=== PATIENT | male | born 1960 | race Asian ===

== ENCOUNTER 2017-03-27 10:32 | Outpatient (CLI) | payer OTHER ==
--- NOTE | 2017-03-27 15:19 | XRAY Report ---
TWO-VIEW RIGHT CALCANEUS: 03/27/2017 CLINICAL INDICATION: Right heel pain. FINDINGS: Frontal and lateral views of the right calcaneus demonstrate no evidence of fracture. Mil d degenerative changes are present, with a small plantar calcaneal spur. No radiopaque foreign body is seen in the soft tissues. IMPRESSION: MILD DEGENERATIVE CHANGES. NO EVIDENCE OF CALCANEAL FRACTURE. JOB #: [id number] EXT JOB #:[id number]
== END 2017-03-27 10:33 | disposition home or self-care (01) ==
LOC: DI.N 10:32
PROVIDERS: ATTEND Physician Assistant
DX: M19.071 Primary osteoarthritis, right ankle and foot (principal)

== ENCOUNTER 2018-11-25 10:16 | Outpatient (CLI) | payer BC ==
--- NOTE | 2018-11-25 12:46 | XRAY Report ---
Reason: SCIATICA,LEFT SIDE Procedure Date: 11/25/2018 Accession Number: [id number] / [id number] Procedure: XRN - Lumbar Spine Complete CPT Code: FULL RESULT: EXAM: LUMBOSACRAL SPINE RADIOGRAPHY EXAM DATE: 11/25/2018 10:43 AM. CLINICAL HISTORY: Sciatica, left side. COMPARISONS: None. TECHNIQUE: 5 views. FINDINGS: Alignment: Mild dextroconvex lumbar scoliosis centered about L2. No listhesis. Bones: Five [id number] lumbar vertebral bodies are present. No fractures or bone lesions. Disks: Normal. Disk heights are maintained. Facets: Mild facet arthropathy predominantly at L5. Sacroiliac Joints: Unremarkable. Soft Tissues: Normal. The visualized bowel gas pattern is normal. IMPRESSION: Mild degenerative changes. RADIA
== END 2018-11-25 10:17 | disposition home or self-care (01) ==
LOC: DI.N 10:16
PROVIDERS: ATTEND Family Medicine
DX: M47.9 Spondylosis, unspecified (principal)
CPT/HCPCS: 72110

== ENCOUNTER 2019-09-03 02:07 | Outpatient (CLI) | payer BC | END 2019-09-03 02:08 | disposition critical access hospital (66) | LOC: EMS 02:07 | PROVIDERS: ATTEND Surgery | DX: R11.2 Nausea with vomiting, unspecified (principal); R10.9 Unspecified abdominal pain | CPT/HCPCS: A0425; A0427 ==

== ENCOUNTER 2019-09-03 02:24 | Emergency (ER) | payer BC ==
[2019-09-03] MEDS ORDERED: SODIUM CHLORIDE 0.9% 1,000 ML IV ONE (02:41)
[2019-09-03] MEDS ORDERED: LIDOCAINE VISCOUS 2% 15 ML UDC MM STA (02:42)
[2019-09-03] MEDS ORDERED: MAG HYDROX/AL HYDROX/SIMETH 30 ML UDC PO STA (02:42)
--- NOTE | 2019-09-03 02:42 | ED Physician Documentation ---
PD HPI NVD - Stated complaint Stated Complaint: ABD PAIN, N/V - Chief complaint Chief Complaint: Abd Pain - History obtained from History obtained from: Patient, EMS - History of Present Illness Timing - onset: How many hours ago (1-2) Timing - duration: Hours (1-2) Timing - details: Abrupt onset, Still present Associated symptoms: Abdominal pain (upper abd cramping pain with the vomiting). No: Fever Contributing factors: No: Sick contact, Bad food (ate chines food just prior to onset of symptoms but /family did as well and they are not ill.) Improved by: No: Vomiting Worsened by: Eating Similar symptoms before: Has not had sx before Recently seen: Not recently seen Review of Systems Constitutional: denies: Fever, Chills Nose: reports: Congestion (for couple of days.). denies: Rhinorrhea / runny nose Throat: denies: Sore throat Respiratory: reports: Cough (mild for 1-2 days) GI: reports: Abdominal Pain, Nausea, Vomiting. denies: Diarrhea : denies: Dysuria, Frequency Neurologic: reports: Generalized weakness. denies: Near syncope PD PAST MEDICAL HISTORY - Past Medical History Past Medical History: No Cardiovascular: High cholesterol Respiratory: None Neuro: None GI: Diverticulitis - Past Surgical History Past Surgical History: No - Present Medications Home Medications: Ambulatory Orders Medication Instructions Recorded Confirmed Diphenoxylate/Atropine [Lomotil] 1 each PO QID PRN #12 tablet 09/03/19 Ondansetron Odt [Zofran] 4 mg TL Q6H PRN #10 tablet 09/03/19 - Allergies Allergies/Adverse Reactions: Allergies Allergy/AdvReac Type Severity Reaction Status Date / Time No Known Drug Allergies Allergy Verified 09/03/19 02:34 - Social History Does the pt smoke?: No Smoking Status: Never smoker Does the pt drink ETOH?: Yes Does the pt have substance abuse?: Yes Substance Use and Type: Marijuana - Immunizations Immunizations are current?: Yes - POLST Patient has POLST: No PD ED PE NORMAL - Vitals Vital signs reviewed: Yes - General General: Alert and oriented X 3, Well developed/nourished - HEENT HEENT: Pharynx benign - Neck Neck: Supple, no meningeal sign, No adenopathy - Cardiac Cardiac: RRR, No murmur - Respiratory Respiratory: Clear bilaterally - Abdomen Abdomen: Normal bowel sounds, Soft, Non distended, No organomegaly, Other (tender upper abd without guarding nor percussion tenderness. ) - Rectal Rectal: Deferred - Back Back: No CVA TTP - Derm Derm: Normal color, Warm and dry Results - Vitals Vitals: Vital Signs - 24 hr 09/03/19 09/03/19 09/03/19 02:26 02:35 04:34 Temperature 36.6 C 36.6 C Heart Rate 68 63 59 L Respiratory 16 15 Rate Blood Pressure 104/74 112/70 110/60 O2 Saturation 100 100 99 09/03/19 05:15 Temperature 36.3 C L Heart Rate 58 L Respiratory 16 Rate Blood Pressure 106/58 L O2 Saturation 99 Oxygen O2 Source Room air - Labs Labs: Laboratory Tests 09/03/19 09/03/19 09/03/19 02:42 02:42 03:25 WBC 14.7 H RBC 4.83 Hgb 14.6 Hct 43.2 MCV 89.4 MCH 30.2 MCHC 33.8 RDW 12.5 Plt Count 283 MPV 9.3 Neut # (Auto) 13.1 H Lymph # (Auto) 0.6 L [place] # (Auto) 0.7 Eos # (Auto) 0.1 Baso # (Auto) 0.0 Absolute Nucleated RBC 0.00 Nucleated RBC % 0.0 Sodium 140 Potassium 3.1 L Chloride 109 Carbon Dioxide 22 Anion Gap 9.0 BUN 27 H Creatinine 1.0 Estimated GFR (MDRD) 76 L Glucose 137 H Calcium 8.9 Total Bilirubin 1.3 H AST 38 ALT 42 Alkaline Phosphatase 50 Total Protein 6.8 Albumin 3.9 Globulin 2.9 Albumin/Globulin Ratio 1.3 Lipase 42 Urine Color YELLOW Urine Clarity CLEAR Urine pH 6.0 Ur Specific [place] 1.025 Urine Protein NEGATIVE Urine Glucose (UA) NEGATIVE Urine Ketones TRACE Urine Occult Blood NEGATIVE Urine Nitrite NEGATIVE Urine Bilirubin NEGATIVE Urine Urobilinogen 0.2 (NORMAL) Ur Leukocyte Esterase NEGATIVE Ur Microscopic Review NOT INDICATED Urine Culture Comments NOT INDICATED - Rads (name of study) upper abd U/S Radiology: Prelim report reviewed (no acute process), See rad report PD MEDICAL DECISION MAKING - ED course Complexity details: reviewed results (No acute process on labs or ultrasound. He did develop some diarrhea here in the ER as well and again family members are feeling okay so I am presuming a viral illness.), re-evaluated patient (feeling such better with some fluids and meds. ), considered differential (Consider food poisoning versus food intolerance or viral gastroenteritis. Also consider biliary colic or pancreatitis.), d/w patient Departure - Departure Disposition: 01 Home, Self Care Clinical Impression: Nausea vomiting and diarrhea Condition: Stable Record reviewed to determine appropriate education?: Yes Instructions: ED Food Poison Or Gastroenteritis Prescriptions: Diphenoxylate/Atropine [Lomotil] 1 each PO QID PRN #12 tablet PRN Reason: Diarrhea Ondansetron Odt [Zofran] 4 mg TL Q6H PRN #10 tablet PRN Reason: Nausea / Vomiting Comments: Presume this is likely a viral "stomach flu" and will last 1-2 days. Use Zofran if needed for nausea/vomiting, Diphenoxylate if needed for diarrhea. Tylenol as needed for pains. Frequent fluids. Hardy food such as rice/pastas/breads initially and with simple sugars such as juice/gatorades. Advance as tolerated. Recheck if not improved over the next couple days back to normal. Discharge Date/Time: 09/03/19 05:15
[2019-09-03 02:54] LABS: BASOPHILS % (AUTO) 0.3 %; EOSINOPHILS # (AUTO) 0.1 10^3/uL (0.0-0.7); EOSINOPHILS % (AUTO) 0.9 %; HGB - HEMOGLOBIN 14.6 g/dL (14.0-18.0); LYMPHOCYTES # (AUTO) 0.6 10^3/uL (1.5-3.5); LYMPHOCYTES % (AUTO) 4.3 %; MEAN CORPUSCULAR HEMOGLOBIN 30.2 pg (27.0-31.0); MEAN CORPUSCULAR HGB CONC 33.8 g/dL (32.0-36.0); MEAN CORPUSCULAR VOLUME 89.4 fL (80.0-94.0); MEAN PLATELET VOLUME 9.3 fL (7.4-11.4); MONOCYTES # (AUTO) 0.7 10^3/uL (0.0-1.0); MONOCYTES % (AUTO) 4.6 %; NEUTROPHILS # (AUTO) 13.1 10^3/uL (1.5-6.6); NEUTROPHILS % (AUTO) 89.2 %; PLT - PLATELET COUNT 283 10^3/uL (130-450); RED BLOOD COUNT 4.83 10^6/uL (4.70-6.10); RED CELL DISTRIBUTION WIDTH 12.5 % (12.0-15.0); WHITE BLOOD COUNT 14.7 x10^3/uL (4.8-10.8)
[2019-09-03 03:06] LABS: ALBUMIN 3.9 g/dL (3.2-5.5); ALBUMIN/GLOBULIN RATIO 1.3 (1.0-2.2); BILIRUBIN,TOTAL 1.3 mg/dL (0.2-1.0); CALCIUM 8.9 mg/dL (8.5-10.3); TOTAL PROTEIN 6.8 g/dL (6.7-8.2)
[2019-09-03 04:07] LABS: BILIRUBIN,URINE NEGATIVE (NEGATIVE); CLARITY,URINE CLEAR (CLEAR); GLUCOSE, URINE (UA) NEGATIVE (NEGATIVE); KETONES,URINE (UA) TRACE mg/dL (NEGATIVE); LEUKOCYTE ESTERASE, URINE NEGATIVE (NEGATIVE); NITRITE,URINE NEGATIVE (NEGATIVE); OCCULT BLOOD,URINE NEGATIVE (NEGATIVE); PROTEIN,URINE NEGATIVE (NEGATIVE); UROBILINOGEN,URINE 0.2 (NORMAL) E.U./dL (NORMAL)
[2019-09-03] MEDS ORDERED: ONDANSETRON ODT 4 MG Prepack 2 TL PRN (04:10)
[2019-09-03] MEDS ORDERED: DIPHENOX/ATROPINE 2.5/0.025 MG TABLET PO STA (04:10)
--- NOTE | 2019-09-03 04:10 | Ultrasound Report ---
Reason: upper abd pain and vomiting 2 hours Procedure Date: 09/03/2019 Accession Number: [id number] / [id number] Procedure: US - Abdomen Limited CPT Code: Final Report FULL RESULT: EXAM: ABDOMEN ULTRASOUND LIMITED, RUQ EXAM DATE: 09/03/2019 03:35 AM. CLINICAL HISTORY: Upper abdominal pain and vomiting for 2 hours. Elevated bilirubin. COMPARISON: None. TECHNIQUE: Real-time scanning was performed with static images obtained. FINDINGS: Liver: Normal echogenicity. No suspicious focal lesion. Liver measures 17.3 cm in length. Portal Vein: Patent with hepatopetal flow. Gallbladder: No stones, wall thickening, or sonographic Page's sign. Biliary System: CBD measures 2.5-3.8 mm. No intrahepatic or extrahepatic ductal dilatation. Pancreas: Obscured by overlying structures. Right Kidney: Visualized portions of the right kidney are without significant abnormality. Right kidney measures 10.3 cm in length. Other: None. IMPRESSION: No cholelithiasis, cholecystitis, or biliary dilation. Nonspecific upper quadrant tenderness. RADIA
[2019-09-03 05:17] VITALS: BP 106/58
== END 2019-09-03 05:15 | disposition home or self-care (01) ==
LOC: EDUNIT# → ED 02:24
DX: R11.2 Nausea with vomiting, unspecified (principal); R19.7 Diarrhea, unspecified
CPT/HCPCS: 36415; 76705; 80053; 81003; 83690; 85025; 96360; 96361; 99284; A9270; 81001; 87086

== ENCOUNTER 2022-01-13 08:14 | Outpatient (CLI) | payer OTHER | END 2022-01-13 08:15 | disposition critical access hospital (66) | LOC: EMS 08:14 | DX: R07.89 Other chest pain (principal) | CPT/HCPCS: A0425; A0427 ==

== ENCOUNTER 2022-01-13 08:35 | Emergency (ER) | payer BC, OTHER ==
--- NOTE | 2022-01-13 08:54 | ED Physician Documentation ---
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 But also some discomfort eating with improves with belching. Onset of chest pain during sleep this morning about 3 am, lasting for 20-30 minutes.) Timing - duration: Minutes Timing - details: Intermittant Quality: Tightness, Aching Location: Substernal, Left chest Radiation: No: Neck, Back Improved by: Rest Worsened by: No: Inspiration, Movement Associated symptoms: Shortness of air, Other (belching) Similar symptoms before: Has not had sx before Recently seen: Clinic (went to [facility] this morning and referred to ER for expeditious testing.) Review of Systems Constitutional: denies: Fever, Chills Nose: denies: Rhinorrhea / runny nose, Congestion Throat: denies: Sore throat Respiratory: denies: Cough GI: denies: Abdominal Pain, Vomiting, Diarrhea, Bloody / black stool Skin: denies: Rash, Lesions Neurologic: reports: Generalized weakness. denies: Near syncope PD PAST MEDICAL HISTORY - Past Medical History Cardiovascular: High cholesterol Respiratory: None Neuro: None GI: Diverticulitis - Past Surgical History Past Surgical History: No - Present Medications Home Medications: Ambulatory Orders Medication Instructions Recorded Confirmed Diphenoxylate/Atropine [Lomotil] 1 each PO QID PRN #12 tablet 09/03/19 Ondansetron Odt [Zofran] 4 mg TL Q6H PRN #10 tablet 09/03/19 Famotidine [Pepcid] 20 mg PO DAILY #20 tablet 01/13/22 - Allergies Allergies/Adverse Reactions: Allergies Allergy/AdvReac Type Severity Reaction Status Date / Time No Known Drug Allergies Allergy Verified 09/03/19 02:34 - Social History Does the pt smoke?: No Smoking Status: Never smoker Does the pt drink ETOH?: Yes Does the pt have substance abuse?: Yes - Immunizations Immunizations are current?: Yes - POLST Patient has POLST: No PD ED PE NORMAL - Vitals Vital signs reviewed: Yes - General General: Alert and oriented X 3, No acute distress, Well developed/nourished - HEENT HEENT: Pharynx benign - Neck Neck: Supple, no meningeal sign, No adenopathy - Cardiac Cardiac: RRR, No murmur - Respiratory Respiratory: Clear bilaterally, Other (no chestwall tenderness. ) - Abdomen Abdomen: Normal bowel sounds, Soft, Non tender, Non distended - Derm Derm: Normal color, Warm and dry - Extremities Extremities: Normal ROM s pain, No edema, No calf tenderness / cord - Neuro Neuro: Alert and oriented X 3, No motor deficit, Normal speech Eye Opening: Spontaneous Motor: Obeys Commands Verbal: Oriented GCS Score: 15 Results - Vitals Vitals: Vital Signs - 24 hr 01/13/22 01/13/22 01/13/22 08:39 08:59 10:15 Temperature 36.7 C Heart Rate 54 L 63 66 Respiratory 16 19 21 Rate Blood Pressure 110/85 H 135/85 H 142/84 H O2 Saturation 100 100 100 01/13/22 12:37 Temperature Heart Rate 73 Respiratory 20 Rate Blood Pressure 154/87 H O2 Saturation 100 Oxygen O2 Source Room air - EKG (time done) 08:42 Rate: Rate (enter#) (52) Rhythm: NSR [place]: Normal Intervals: Normal [place] QRS: Normal Ischemia: Normal ST segments. No: ST elevation c/w ischemia, ST depression Computer interpretation: Agree with computer - Labs Labs: Laboratory Tests 01/13/22 01/13/22 01/13/22 09:00 09:00 09:00 WBC 4.7 L RBC 5.22 Hgb 15.6 Hct 46.4 MCV 88.9 MCH 29.9 MCHC 33.6 RDW 12.8 Plt Count 266 MPV 9.0 Neut # (Auto) 3.0 Lymph # (Auto) 1.0 L [place] # (Auto) 0.4 Eos # (Auto) 0.3 Baso # (Auto) 0.1 Absolute Nucleated RBC 0.00 Nucleated RBC % 0.0 Sodium 139 Potassium 3.9 Chloride 105 Carbon Dioxide 23 Anion Gap 11.0 BUN 21 H Creatinine 0.8 Estimated GFR (MDRD) 98 Glucose 115 H Calcium 8.9 Total Bilirubin 0.7 AST 31 ALT 32 Alkaline Phosphatase 50 Troponin I High Sens 3.9 B-Natriuretic Peptide Total Protein 6.9 Albumin 4.0 Globulin 2.9 Albumin/Globulin Ratio 1.4 Lipase 39 01/13/22 09:00 WBC RBC Hgb Hct MCV MCH MCHC RDW Plt Count MPV Neut # (Auto) Lymph # (Auto) [place] # (Auto) Eos # (Auto) Baso # (Auto) Absolute Nucleated RBC Nucleated RBC % Sodium Potassium Chloride Carbon Dioxide Anion Gap BUN Creatinine Estimated GFR (MDRD) Glucose Calcium Total Bilirubin AST ALT Alkaline Phosphatase Troponin I High Sens B-Natriuretic Peptide 19 Total Protein Albumin Globulin Albumin/Globulin Ratio Lipase - Rads (name of study) chest xray Radiology: Prelim report reviewed (no acute process), See rad report PD MEDICAL DECISION MAKING - ED course Complexity details: reviewed results, re-evaluated patient, considered differe ntial (consider ACS/angina/NE versus msculoskeletal vs. gastritis/GERD amongst other causes. ), d/w PMD (I talked with PA at Dr. Adhikari's office who will arrange stress test for patient presume this outpt here at . ), d/w clinical application consultant (Hospitalist, who said we did not have ability for stress testing today and patient not having clear criteria for hospital stay/OBS into tomorrow. Can have PMD order stress test outpt for . ) Departure - Departure Disposition: Home, Self Care Clinical Impression: Chest pain Qualifiers: Chest pain type: precordial pain Qualified Code(s): R07.2 - Precordial pain Condition: Stable Record reviewed to determine appropriate education?: Yes Follow-Up: Jer Adhikari DO [Primary Care Provider] - Prescriptions: Famotidine [Pepcid] 20 mg PO DAILY #20 tablet Comments: I would suggest rest and take it easy without work today and tomorrow anyway. As of this moment, Dr. Adhikari has not called back from the office. When he does I will tell him our thought process of needing a stress test and concern for side effect of the bupropion with possible reflux. I would suggest using acid reducing medicine of famotidine twice daily for the next several days and then once daily after that for couple more weeks. For now I think you can continue with the bupropion at the lower dose for now. Add antacid such as Maalox or Mylanta if needed for discomfort. I will talk with Dr. Adhikari about setting up the stress test to fully exclude a heart cause of your discomfort. I assume he will's office will contact you later today after I talked to them. Return to the ER if repeated and persistent symptoms. Forms: Activity restrictions Discharge Date/Time: 01/13/22 12:41
[2022-01-13 09:06] LABS: BASOPHILS # (AUTO) 0.1 10^3/uL (0.0-0.1); BASOPHILS % (AUTO) 1.3 %; EOSINOPHILS # (AUTO) 0.3 10^3/uL (0.0-0.7); EOSINOPHILS % (AUTO) 5.8 %; HCT - HEMATOCRIT 46.4 % (42.0-52.0); HGB - HEMOGLOBIN 15.6 g/dL (14.0-18.0); LYMPHOCYTES % (AUTO) 20.3 %; MEAN CORPUSCULAR HEMOGLOBIN 29.9 pg (27.0-31.0); MEAN CORPUSCULAR HGB CONC 33.6 g/dL (32.0-36.0); MEAN CORPUSCULAR VOLUME 88.9 fL (80.0-94.0); MONOCYTES # (AUTO) 0.4 10^3/uL (0.0-1.0); MONOCYTES % (AUTO) 7.5 %; NEUTROPHILS % (AUTO) 64.7 %; PLT - PLATELET COUNT 266 10^3/uL (130-450); RED BLOOD COUNT 5.22 10^6/uL (4.70-6.10); RED CELL DISTRIBUTION WIDTH 12.8 % (12.0-15.0); WHITE BLOOD COUNT 4.7 x10^3/uL (4.8-10.8)
[2022-01-13 09:20] LABS: ALBUMIN/GLOBULIN RATIO 1.4 (1.0-2.2); BILIRUBIN,TOTAL 0.7 mg/dL (0.2-1.0); CALCIUM 8.9 mg/dL (8.5-10.3); CREATININE 0.8 mg/dL (0.6-1.2); POTASSIUM 3.9 mmol/L (3.5-5.0); TOTAL PROTEIN 6.9 g/dL (6.7-8.2)
--- NOTE | 2022-01-13 09:29 | XRAY Report ---
PROCEDURE: Chest 1 View X-Ray INDICATIONS: Chest pain TECHNIQUE: One view of the chest was acquired. COMPARISON: None FINDINGS: Surgical changes and devices: None. Lungs and pleura: No pleural effusions or pneumothorax. Lungs are clear. Mediastinum: Mediastinal contours appear normal. Heart size is normal. Bones and chest wall: No suspicious bony lesions. Overlying soft tissues appear unremarkable. IMPRESSION: No acute cardiopulmonary process demonstrated radiographically. Reviewed by: Isma Du MD on 01/13/2022 9:28 AM PDT Approved by: Isma Du MD on 01/13/2022 9:28 AM PDT Station ID: [id number]
--- OUTSIDE RECORDS SUMMARY | 2022-01-13 09:41 | EXTERNAL MEDICAL SUMMARY RPT | Continuity of Care Document ---
:1960 Author Organization [facility] Address [address] [place] [address] Phone Care Team Providers Name Role Phone MD Unavailable Unavailable Allergies No information. Encounters No information. Medications date description facility 20220113 bupropion hcl All Problems date description facility 20220113 Unspecified chest pain All 20220113 Details of drug misuse behavior All 20220113 Chest pain, unspecified All 20220113 Chest pain All 20220113 Alcohol use All 20220113 Alcohol intake All Procedures date description facility 20220113 EKG Office Complete All Results No information. Vital Signs date measurement value source 20220113 weight_standard 156.2 lb 20220113 weight_metric 70.85 kg 20220113 temperature_standard 97.4 F 20220113 temperature_metric 36.33 C 20220113 respiration_rate 18 /min 20220113 heart_rate 64 /min 20220113 BP_systolic 176 mm[Hg] 20220113 BP_diastolic 88 mm[Hg]
[2022-01-13] MEDS ORDERED: MAG HYDROX/AL HYDROX/SIMETH 30 ML UDC PO STA (12:02)
[2022-01-13] MEDS ORDERED: FAMOTIDINE 20 MG TABLET PO STA (12:03)
[2022-01-13 12:37] VITALS: BP 154/87
== END 2022-01-13 12:41 | disposition home or self-care (01) ==
LOC: EDUNIT# → ED 08:35
DX: R07.2 Precordial pain (principal)
CPT/HCPCS: 36415; 71045; 80053; 83690; 83880; 84484; 85025; 93005; 99284; A9270

== ENCOUNTER 2022-01-14 06:08 | Emergency (ER) | payer OTHER ==
--- OUTSIDE RECORDS SUMMARY | 2022-01-14 06:23 | EXTERNAL MEDICAL SUMMARY RPT | Continuity of Care Document ---
:1960 Author Organization [facility] Address [address] [place] [address] Phone Care Team Providers Name Role Phone [...]
--- NOTE | 2022-01-14 06:56 | ED Physician Documentation ---
PD HPI CHEST PAIN - Stated complaint Stated Complaint: Chest pressure,soa,cough - Chief complaint Chief Complaint: Cardiac - History obtained from History obtained from: Patient - History of Present Illness Timing - onset: How many hours ago (2) Timing - onset during: Sleep (awoke from sleep with chest pain again, similar to prior night. This episode more epigastric.) Timing - duration: Hours (2) Timing - details: Abrupt onset, Still present Quality: Aching, Pain Location: Substernal, Epigastric Radiation: No: Jaw, Neck, Back Improved by: Other (sitting up) Associated symptoms: Nausea, Feeling faint / dizzy. No: Shortness of air, Diaphoresis, Vomiting, Palpitations Similar symptoms before: No diagnosis (possible gastritis, but concern for ACS. patient says has appt with PMD Thursday.) Recently seen: Emergency Dept (yesterday) Review of Systems Constitutional: denies: Fever, Chills Nose: denies: Rhinorrhea / runny nose, Congestion Throat: denies: Sore throat Respiratory: denies: Cough GI: reports: Nausea. denies: Vomiting, Diarrhea, Bloody / black stool Skin: denies: Rash, Lesions Musculoskeletal: denies: Neck pain, Back pain, Extremity swelling Neurologic: denies: Near syncope, Altered mental status, Headache PD PAST MEDICAL HISTORY - Past Medical History Past Medical History: Yes Cardiovascular: High cholesterol Respiratory: None Neuro: None GI: Diverticulitis Psych: Depression, Anxiety - Past Surgical History Past Surgical History: No - Present Medications Home Medications: Ambulatory Orders Medication Instructions Recorded Confirmed Diphenoxylate/Atropine [Lomotil] 1 each PO QID PRN #12 tablet 09/03/19 01/14/22 Ondansetron Odt [Zofran] 4 mg TL Q6H PRN #10 tablet 09/03/19 01/14/22 Famotidine [Pepcid] 20 mg PO DAILY #20 tablet 01/13/22 01/14/22 Lidocaine Viscous 2% [Xylocaine 5 ml PO Q4H PRN #100 ml 01/14/22 Viscous 2%] Pantoprazole [Protonix] 40 mg PO DAILY 30 Days #30 tablet 01/14/22 Sucralfate [Carafate] 1 gm PO ACHS #20 tablet 01/14/22 buPROPion HCL [Bupropion HCl] 75 mg PO DAILY 01/14/22 01/14/22 - Allergies Allergies/Adverse Reactions: Allergies Allergy/AdvReac Type Severity Reaction Status Date / Time No Known Drug Allergies Allergy Verified 01/14/22 06:28 - Social History Does the pt smoke?: No Smoking Status: Never smoker Does the pt drink ETOH?: Yes Does the pt have substance abuse?: Yes - Immunizations Immunizations are current?: Yes - POLST Patient has POLST: No PD ED PE NORMAL - Vitals Vital signs reviewed: Yes - General General: Alert and oriented X 3, No acute distress, Well developed/nourished - Neck Neck: Supple, no meningeal sign, No adenopathy, No JVD - Cardiac Cardiac: RRR, No murmur - Respiratory Respiratory: No respiratory distress, Clear bilaterally - Abdomen Abdomen: Normal bowel sounds, Soft, Non distended, No organomegaly, Other (tender epigastric and luq areas) - Back Back: No CVA TTP - Derm Derm: Normal color, Warm and dry - Extremities Extremities: No tenderness to palpate, Normal ROM s pain, No edema, No calf tenderness / cord - Neuro Neuro: Alert and oriented X 3, No motor deficit, Normal speech Results - Vitals Vitals: Vital Signs - 24 hr 01/14/22 01/14/22 01/14/22 06:12 07:00 09:00 Temperature 36.3 C L Heart Rate 54 L 64 67 Respiratory 17 19 14 Rate Blood Pressure 151/107 H 144/84 H 149/99 H O2 Saturation 100 100 100 Oxygen O2 Source Room air - EKG (time done) 06:20 Rate: Rate (enter#) (60) Rhythm: NSR [place]: Normal Intervals: Normal [place] QRS: Normal Ischemia: Normal ST segments. No: ST elevation c/w ischemia, ST depression Compare to prior EKG: Unchanged from prior EKG - Labs Labs: Laboratory Tests 01/14/22 01/14/22 01/14/22 06:33 06:33 06:33 WBC 6.4 RBC 5.35 Hgb 16.0 Hct 46.6 MCV 87.1 MCH 29.9 MCHC 34.3 RDW 12.9 Plt Count 287 MPV 9.6 Neut # (Auto) 4.1 Lymph # (Auto) 1.4 L [place] # (Auto) 0.5 Eos # (Auto) 0.3 Baso # (Auto) 0.0 Absolute Nucleated RBC 0.00 Nucleated RBC % 0.0 Sodium 136 Potassium 3.5 Chloride 102 Carbon Dioxide 22 Anion Gap 12.0 BUN 21 H Creatinine 0.9 Estimated GFR (MDRD) 85 L Glucose 107 H Calcium 9.2 Total Bilirubin 1.3 H AST 29 ALT 31 Alkaline Phosphatase 53 Troponin I High Sens 5.7 Total Protein 7.2 Albumin 4.3 Globulin 2.9 Albumin/Globulin Ratio 1.5 Lipase 40 - Rads (name of study) abd ct Radiology: Prelim report reviewed (normal), See rad report PD MEDICAL DECISION MAKING - ED course Complexity details: reviewed results (CT showing gastric wall thickening c/w gastritis. ECG and Trop normal still. Much more c/w gastritis now as cause of recent symptoms. ), re-evaluated patient (improved with GI cocktail. ), considered differential (had been having substernal CP not clear etiology, but now more epigastric and so more consider gastritis/GERD.), d/w patient Departure - Departure Disposition: 01 Home, Self Care Clinical Impression: Epigastric pain Chest pain Qualifiers: Chest pain type: precordial pain Qualified Code(s): R07.2 - Precordial pain Acute gastritis Qualifiers: Gastritis type: unspecified gastritis Gastritis bleeding: without bleeding Qualified Code(s): K29.00 - Acute gastritis without bleeding Condition: Stable Instructions: ED Chest Pain Atypical Unkn Cause, ED Gastritis Follow-Up: Jer Sue DO [Primary Care Provider] - Prescriptions: Sucralfate [Carafate] 1 gm PO ACHS #20 tablet Pantoprazole [Protonix] 40 mg PO DAILY 30 Days #30 tablet Lidocaine Viscous 2% [Xylocaine Viscous 2%] 5 ml PO Q4H PRN #100 ml PRN Reason: Pain Comments: Your symptoms with upper abd tenderness and also the CT finding of stomach wall inflammation would go along with diagnosis of gastritis. Treat with acid reduction and coating the stomach with pantoprazole and sucralfate. You can add antacids such as maalox or mylanta combined with the lidocaine as needed for symptoms. Follow up with PMD Thursday as planned. It could still be prudent to consider stress testing to ensure no heart component as well. I sent your scripts to [facility] pharmacy. Discharge Date/Time: 01/14/22 09:40
[2022-01-14 07:07] LABS: ALBUMIN 4.3 g/dL (3.2-5.5); ALBUMIN/GLOBULIN RATIO 1.5 (1.0-2.2); BILIRUBIN,TOTAL 1.3 mg/dL (0.2-1.0); CALCIUM 9.2 mg/dL (8.5-10.3); CREATININE 0.9 mg/dL (0.6-1.2); POTASSIUM 3.5 mmol/L (3.5-5.0); TOTAL PROTEIN 7.2 g/dL (6.7-8.2)
[2022-01-14] MEDS ORDERED: MAG HYDROX/AL HYDROX/SIMETH 30 ML UDC PO STA (07:12)
[2022-01-14] MEDS ORDERED: LIDOCAINE VISCOUS 2% 15 ML UDC MM STA (07:12)
[2022-01-14 07:16] LABS: BASOPHILS % (AUTO) 0.6 %; EOSINOPHILS # (AUTO) 0.3 10^3/uL (0.0-0.7); EOSINOPHILS % (AUTO) 4.2 %; HCT - HEMATOCRIT 46.6 % (42.0-52.0); LYMPHOCYTES # (AUTO) 1.4 10^3/uL (1.5-3.5); LYMPHOCYTES % (AUTO) 21.4 %; MEAN CORPUSCULAR HEMOGLOBIN 29.9 pg (27.0-31.0); MEAN CORPUSCULAR HGB CONC 34.3 g/dL (32.0-36.0); MEAN CORPUSCULAR VOLUME 87.1 fL (80.0-94.0); MEAN PLATELET VOLUME 9.6 fL (7.4-11.4); MONOCYTES # (AUTO) 0.5 10^3/uL (0.0-1.0); MONOCYTES % (AUTO) 8.1 %; NEUTROPHILS # (AUTO) 4.1 10^3/uL (1.5-6.6); NEUTROPHILS % (AUTO) 64.6 %; PLT - PLATELET COUNT 287 10^3/uL (130-450); RED BLOOD COUNT 5.35 10^6/uL (4.70-6.10); RED CELL DISTRIBUTION WIDTH 12.9 % (12.0-15.0); WHITE BLOOD COUNT 6.4 x10^3/uL (4.8-10.8)
[2022-01-14] MEDS ORDERED: IOVERSOL 320 100 ML VIAL IVP ONE ×2 (07:34→09:33)
--- NOTE | 2022-01-14 08:26 | CT Report ---
PROCEDURE: Abdomen/Pelvis W INDICATIONS: upper abd pain CONTRAST: IV CONTRAST: Optiray 320 ml: 100 PO CONTRAST: *NO PO CONTRAST TECHNIQUE: After the administration of intravenous contrast, 5 mm thick sections acquired from the diaphragms to the symphysis. 5 mm thick coronal and sagittal reformats were acquired. For radiation dose reducti on, the following was used: automated exposure control, adjustment of mA and/or kV according to fernanda ent size. COMPARISON: None. FINDINGS: Inferior chest: No focal consolidation, pleural effusion, or pneumothorax. No cardiomegaly or perica rdial effusion. Gallbladder: The gallbladder is distended with a smooth thin wall. Biliary tree: No intra-or extrahepatic biliary ductal dilatation. Liver: The liver demonstrates normal enhancement, size, and contour. Spleen: Normal enhancement, size and morphology is seen. Pancreas: No contour deforming mass or inflammatory change. Adrenals: Normal size without masses. Kidneys/ureters: Normal size and morphology. No solid masses or hydronephrosis. Vasculature: No evidence of aneurysm or other significant vascular pathology. Lymphatic system: No pathologic enlargement by size criteria. GI/mesentery: No evidence of intestinal obstruction. Scattered colonic diverticulosis. Mild to modera te stool burden throughout the colon. Normal appearance of the appendix. Peritoneum/Retroperitoneum: No free intraperitoneal gas or large collection. Urinary bladder: Marked distention of the urinary bladder, measuring up to 12 cm in length. Pelvic organs: Enlargement of the prostate measuring 4.5 x 4 cm. Bones/soft tissues: No significant abnormality. IMPRESSION: 1.Distention of urinary bladder with enlargement of the prostate, concerning for obstructive uropathy . Reviewed by: Jamison Palafox MD on 01/14/2022 8:25 AM PDT Approved by: Jamison Palafox MD on 01/14/2022 8:25 AM PDT Station ID: [id number]
[2022-01-14 09:06] VITALS: BP 149/99
--- NOTE | 2022-01-15 16:21 | XRAY Report ---
PROCEDURE: Chest 1 View X-Ray INDICATIONS: Chest pain TECHNIQUE: One view of the chest was acquired. COMPARISON: January 13, 2022 FINDINGS: SUPPORT DEVICES: None. LUNGS/PLEURA: No focal consolidation, pleural effusion or space-occupying pneumothorax. MEDIASTINUM: The cardiomediastinal silhouette is within normal limits. BONES/SOFT TISSUES: No acute abnormality. IMPRESSION: 1.No acute cardiopulmonary abnormality. Reviewed by: Jamison Palafox MD on 01/15/2022 4:20 PM PDT Approved by: Jamison Palafox MD on 01/15/2022 4:20 PM PDT Station ID: [id number]
== END 2022-01-14 09:40 | disposition home or self-care (01) ==
LOC: ED 06:08
DX: K29.00 Acute gastritis without bleeding (principal); R07.2 Precordial pain
CPT/HCPCS: 36415; 71045; 74177; 80053; 83690; 84484; 85025; 93005; 99284; A9270; Q9967